=== PATIENT | male | born 2005 | race Caucasian/White ===

== ENCOUNTER 2024-01-05 22:33 | Emergency (ER) | payer MEDICAID, SELFPAY ==
[2024-01-05 22:37] VITALS: BP 130/80; PULSE 73; RESP 16; TEMP 37.6; O2SAT 99; BMI 24.4
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
[2024-01-05] MEDS: Acetaminophen 325 MG TABLET 975 MG PO (23:11)
[2024-01-05] MEDS: Lidocaine HCl 1 % MPF 30 ML VIAL SUBCUT (23:11)
[2024-01-05] MEDS: Bacitracin Oint 0.9 GM PACKET 1 APPL TOPICAL (23:11)
[2024-01-06 00:12] VITALS: BP 130/80; PULSE 73; RESP 16; TEMP 37.6; O2SAT 99
== END 2024-01-06 00:13 | disposition home or self-care (01) ==
PROVIDERS: Emergency Provider Emergency Medicine; PCP Family Medicine
DX: S01.112A Laceration without foreign body of left eyelid and periocular area, initial encounter (principal); W50.0XXA Accidental hit or strike by another person, initial encounter; Y93.89 Activity, other specified; Y92.252 Music hall as the place of occurrence of the external cause; Y99.9 Unspecified external cause status
CPT/HCPCS: 12011; 99283; 99284; J2003